=== PATIENT | male | born 1990 | race Caucasian/White ===

== ENCOUNTER 2024-02-01 00:49 | Emergency (ER) | payer BC, SELFPAY ==
--- NOTE | ~2024-02-01 | XR_ITS ---
Left Hand Technique: PA, oblique, and lateral views were obtained. Clinical History: Laceration Findings: No acute fracture or dislocation is seen. Osseous alignment is anatomic. Joint spaces are p reserved. Probable soft tissue laceration noted dorsally. No radiopaque foreign body. Impression: No osseous or articular abnormality. Probable laceration noted dorsally. Reviewed, dictated and finalized at location . Impression: No osseous or articular abnormality. Probable laceration noted dorsally.
[2024-02-01 00:59] VITALS: BP 118/73; PULSE 70; RESP 20; TEMP 36.4; O2SAT 97
[2024-02-01] MEDS: TETANUS,DIPHTHERIA,AC PERTUSSIS ADULT (0.5 ML) BOOSTRIX IM (01:12)
--- NOTE | 2024-02-01 01:19 | ED.WOUNDLAC ---
HPI - Wound/Laceration General Chief Complaint: Wound/Laceration Stated Complaint: L HAND LACERATION Time Seen by Provider: 02/01/24 00:57 Source: patient Mode of arrival: ambulatory Limitations: no limitations History of Present Illness HPI narrative: This is a 33-year-old male that presents to the emergency department for laceration of the left hand sustained just prior to arrival. Reports he accidentally cut his hand on his truck bed. He is not up-to-date on tetanus. Denies decreased range of motion or numbness. Related Data Allergies Allergy/AdvReac Type Severity Reaction Status Date / Time No Known Allergies Allergy Verified 02/01/24 00:51 Review of Systems Review of Systems: CONSTITUTIONAL: Denies fever SKIN: Reports laceration MUSCULOSKELETAL: Denies joint pain, or myalgia. NEUROLOGIC: Denies numbness All systems reviewed & are unremarkable except as noted in HPI and below PMFSH Past Medical History Medical History (Updated 02/01/24 @ 01:47 by Tamar Armando PA-C) No active medical problems Social History Social History (Updated 02/01/24 @ 01:20 by Tamar Armando PA-C) Substance use: never Exam Narrative: GENERAL: Well-appearing, well-nourished, and in no acute distress. HEAD: Normocephalic, atraumatic. EYES: EOMI. EXTREMITIES: Normal range of motion. No edema. 3cm linear laceration into subcutaneous tissue to the dorsal surface of the left hand SKIN: Warm, dry, no rash. NEURO: No focal deficits. Alert and oriented x3. PSYCH: Normal mood and affect Course Course Emergency Course: patient educated on further wound care Vital Signs Vital signs: Vital Signs Temperature 97.6 F 02/01/24 00:59 Pulse Rate 70 02/01/24 00:59 Respiratory Rate 20 02/01/24 00:59 Blood Pressure 118/73 02/01/24 00:59 Pulse Oximetry 97 02/01/24 00:59 Temperature 97.6 F 02/01/24 00:59 Pulse Rate 70 02/01/24 00:59 Respiratory Rate 20 02/01/24 00:59 Blood Pressure 118/73 02/01/24 00:59 Pulse Oximetry 97 02/01/24 00:59 Procedures Laceration Laceration 1: Date: 07/01/24 Time: 01:48 Site: hand Side (If applicable): left Size (cm): 3 Description: linear Depth: simple, single layer Local Anesthetic: lidocaine 1% and with epi Amount of anesthesia used (mL): 2 Pre-repair: wound explored and irrigated ====== Skin Level ====== Skin layer closed with: nylon Size (cm): 4-0 Number of sutures: 5 Technique: simple, interrupted ====== Subcutaneous Layer ====== ====== Muscle Layer ====== ====== Tendon Layer ====== MDM - Wound/Laceration MDM Narrative Medical decision making narrative: Patient presents to the emergency department for laceration to the left hand sustained just prior to arrival. His wound was irrigated and closed with sutures. He is neurovascularly intact. Left hand x-ray without acute osseous abnormalities. He was updated on tetanus. Patient was educated on further wound care. He is to follow up with primary provider. He was given warnings to return to the ER Differential Diagnosis Differential diagnosis: Likely laceration, abrasion and avulsion of skin Imaging Data My impression: left hand x-ray: no acute osseous abnormality or evidence of foreign body Critical Care Time Critical Care Time Critical Care Time: No Discharge Plan Discharge Clinical Impression: Laceration Patient Disposition: Home, Self-Care Condition: Stable Instructions: Antibiotic Form, Care For Your Stitches (ED), Laceration (ED) Additional Instructions: Return to the emergency department if you experience fever, redness or swelling of your wound, abnormal drainage from your wound, or any other symptoms that are concerning to you. Apply antibiotic ointment daily. Do not soak the wound. Clean with mild soap and water daily. Take oral antibiotic as
== END 2024-02-01 01:55 | disposition home or self-care (01) ==
PROVIDERS: Emergency Provider Physician Assistant; PCP Emergency Medicine
DX: S61.412A Laceration without foreign body of left hand, initial encounter (principal); Z23 Encounter for immunization; W45.8XXA Other foreign body or object entering through skin, initial encounter
CPT/HCPCS: 12002; 73130; 90471; 90715; 99283